=== PATIENT | male | born 1980 | race Two or more races ===

== ENCOUNTER 2017-02-27 13:58 | Emergency (ER) | payer SELFPAY ==
[~2017-02-27] VITALS: Ht 172 cm; Wt 87.0 kg
[2017-02-27] MEDS ORDERED: PYRIDIUM100 M2 PO (14:13)
[2017-02-27] MEDS ORDERED: AMOXICILLIN500 M1 PO (14:13)
[2017-02-27 14:22] LABS: URINE BILIRUBIN MODERATE (NEG); URINE BLOOD NEGATIVE (NEG); URINE GLUCOSE (UA) NEGATIVE (NEG); URINE KETONE NEGATIVE (NEG); URINE LEUKOCYTE ESTERASE POSITIVE (NEG); URINE PROTEIN NEGATIVE (NEG); URINE SPECIFIC GRAVITY 1.015 (1.003-1.030)
[2017-02-27 14:26] LABS: URINE APPEARANCE HAZY; URINE COLOR ORANGE
[2017-02-27 14:28] LABS: URINE EPITHELIAL CELLS 0-1 /[HPF] (0-10); URINE RBC 0 /[HPF] (0-5); URINE WBC 0 /[HPF] (0-5)
[2017-02-27 14:48] LABS: BASO % 0.2 % (0-2); EOS % 1.7 % (0-7); EOSINOPHIL ABSOLUTE COUNT 0.1 tho/cmm (0.0-0.7); HCT-HEMATOCRIT 44.7 % (36.0-53.5); HGB-HEMOGLOBIN 15.7 gm/dl (13.5-17.0); IMMATURE GRANULOCYTES ABSOLUTE 0.01 tho/cmm (0-0.03); IMMATURE GRANULOCYTES PERCENT 0.1 % (0-0.3); LYMPH ABSOLUTE COUNT 3.1 tho/cmm (0.8-4.5); MCH (MEAN CORPUSCULAR HGB) 31.4 pg (28.0-32.0); MCHC MEAN CORPUSCULAR HGB CONC 35.1 % (32.0-36.0); MCV (MEAN CELL VOLUME) 89.4 fl (82.0-96.0); MONO % 7.4 % (0-12); MONOCYTE ABSOLUTE COUNT 0.6 tho/cmm (0.0-1.2); NEUTROPHIL ABSOLUTE COUNT 4.5 tho/cmm (1.6-8.0); NEUTROPHIL-AUTOMATED 4.5 tho/cmm (1.6-8.0); NEUTROPHILS % 53.6 % (40-80); PLATELET COUNT 256 tho/cmm (150-450); WHITE BLOOD COUNT 8.4 tho/cmm (4.0-10.0)
[2017-02-27 15:08] LABS: ANION GAP 10 mmol/L (0-20); BLOOD UREA NITROGEN 15 mg/dl (6-24); CALCIUM 8.6 mg/dl (8.5-10.5); CARBON DIOXIDE-VENOUS 25 mmol/L (22-32); CHLORIDE 107 mmol/l (96-110); CREATININE 0.73 mg/dl (0.60-1.30); GLUCOSE 142 mg/dL (70-110); POTASSIUM 3.9 mmol/L (3.7-5.1); SODIUM 138 mmol/L (135-145); eGFR VALUE FOR BLACK >90 mL/Min
[2017-02-27] MEDS ORDERED: CIPRO250 M2 PO (16:02)
== END 2017-02-27 16:18 ==
LOC: EDMED 13:58
PROVIDERS: Emergency Medicine; Nurse Practitioner Family
DX: R30.0 Dysuria (principal); Z90.89 Acquired absence of other organs